=== PATIENT | female | born 1975 | race Caucasian/White ===

== ENCOUNTER 2017-08-27 17:46 | Emergency (ER) | payer OTHER ==
[~2017-08-27] VITALS: Ht 152.4 cm; Wt 62.0 kg
[~2017-08-27 17:46] MED LIST: CELE20TA PO
[2017-08-27 18:21] VITALS: BP 151/80; PULSE 75; RESP 19; TEMP 97.9; O2SAT 99
[2017-08-27] MEDS ORDERED: BUPR150XL PO (18:25)
[2017-08-27] MEDS ORDERED: ACETAMINOPHEN/HYDROcodone 325 MG/5 MG TAB PO ONE (18:45)
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
[2017-08-27] MEDS ORDERED: ROBA500T PO (19:58)
[2017-08-27] MEDS ORDERED: IBUP1TAB7 PO (19:58)
== END 2017-08-27 20:36 | disposition home or self-care (01) ==
LOC: NEPD 17:46
DX: S16.1XXA Strain of muscle, fascia and tendon at neck level, initial encounter (principal); S39.012A Strain of muscle, fascia and tendon of lower back, initial encounter; S20.219A Contusion of unspecified front wall of thorax, initial encounter; M50.322 Other cervical disc degeneration at C5-C6 level; F41.9 Anxiety disorder, unspecified; F32.9 Major depressive disorder, single episode, unspecified; V49.9XXA Car occupant (driver) (passenger) injured in unspecified traffic accident, initial encounter; Z88.0 Allergy status to penicillin; Z79.899 Other long term (current) drug therapy
CPT/HCPCS: 70450; 71010; 72125; 72131

== ENCOUNTER 2017-10-28 08:39 | Emergency (ER) | payer OTHER ==
[~2017-10-28 08:39] MED LIST changes: +BUPR150XL PO; -CELE20TA PO; +IBUP1TAB7 PO; +ROBA500T PO
[2017-10-28 08:46] VITALS: BP 128/67; PULSE 92; RESP 16; TEMP 97.9; O2SAT 97
[2017-10-28 09:08] LABS: BILIRUBIN, URINE NEG (NEG); BLOOD, URINE MOD (NEG); GLUCOSE,URINE 250 mg/dL (NEG); KETONE, URINE TRACE mg/dL (NEG); NITRITE,URINE POS (NEG); URINE LEUKOCYTE ESTERASE MOD (NEG)
[2017-10-28] MEDS ORDERED: CELE20TA PO (09:10)
[2017-10-28 09:16] LABS: URINE COLOR ORANGE (YELLW/STRAW); WHITE BLOOD CELL CLUMPS FEW
[2017-10-28 09:17] LABS: BACTERIA, URINE FEW /hpf; RBC, URINE 0-3 /hpf (0-3); SQUAMOUS EPITHELIAL CELL URINE 0-5 /hpf (0-5)
[2017-10-28] MEDS ORDERED: ALBUAER3 INH (09:53)
[2017-10-28] MEDS ORDERED: PRED20 PO (09:53)
[2017-10-28] MEDS ORDERED: MACR100C2 PO (09:53)
--- NOTE | 2017-10-28 09:58 | PD ---
HPI Chief Complaint: Cold / Flu Symptoms Time Seen by Provider: 09:22 Travel History International Travel<30 days: No Contact w/Intl Traveler<30days: No Traveled to known affect area: No History of Present Illness HPI 42-year-old female presents for evaluation. For the past week she has had dysuria, burning, worse with urination. She has also had cough, congestion, sore throat, chills for the past several days. Cough is productive with green sputum production. Denies recent travel, rash. No other complaints at this time. PFSH Past Medical History Anxiety: Yes Depression: Yes Diminished Hearing: No Psychiatric: Yes Influenza Vaccination: No ?: Not : 6 Para: 5 Miscarriage: 1 Tubal Ligation: Yes Social History Alcohol Use: Yes (SOCIAL) Tobacco Use: No (QUIT 2012) Substance Use: No Allergies-Medications (Allergen,Severity, Reaction): Coded Allergies: penicillin G (Unverified Allergy, Unknown, SWELLING, 08/27/17) Reported Meds & Prescriptions Reported Meds & Active Scripts Active Proair Hfa 8.5 GM Inh (Albuterol Sulfate) 90 Mcg/Act Aer 2 Puff INH Q4-6H PRN 108 mcg/actuation Prednisone 20 Mg Tab 20 Mg PO BID 5 Days Macrobid (Nitrofurantoin Monohydrate Macrocrystals) 100 Mg Capsule 100 Mg PO BID 7 Days Reported Celexa (Citalopram Hydrobromide) 20 Mg Tab 20 Mg PO DAILY Review of Systems Except as stated in HPI: all other systems reviewed are Neg Physical Exam Narrative GENERAL: Well-nourished female in no acute distress SKIN: Warm and dry. HEAD: Atraumatic. Normocephalic. EYES: Pupils equal and round. No scleral icterus. No injection or drainage. ENT: No nasal bleeding or discharge. Mucous membranes pink and moist. No oropharyngeal erythema or exudate. Tympanic membranes appear normal without erythema or fluid level. NECK: Trachea midline. No JVD. CARDIOVASCULAR: Regular rate and rhythm. No murmur appreciated. RESPIRATORY: No accessory muscle use. Wheezing noted bilaterally. GASTROINTESTINAL: Abdomen soft, mild suprapubic tenderness without guarding. Data Data Last Documented VS Vital Signs Date Time Temp Pulse Resp B/P (MAP) Pulse Ox O2 Delivery O2 Flow Rate FiO2 10/28/17 08:46 97.9 92 16 128/67 (87) 97 Orders Orders Urinalysis - C+S If Indicated (10/28/17 08:50) Ed Urine Pregnancytest Poc (10/28/17 09:06) Urine Culture (10/28/17 08:50) Albuterol-Ipratropium Neb (Duoneb Neb) (10/28/17 10:00) Prednisone (Deltasone) (10/28/17 10:00) Ed Discharge Order (10/28/17 09:52) Labs Laboratory Tests Test 10/28/17 08:50 Urine Collection Type VOIDED Urine Color ORANGE Urine Turbidity CLOUDY Urine pH 7.0 Urine Specific [place] 1.013 Urine Protein 100 mg/dL Urine Glucose (UA) 250 mg/dL Urine Ketones TRACE mg/dL Urine Occult Blood MOD Urine Nitrite POS Urine Bilirubin NEG Urine Leukocyte Esterase MOD Urine RBC 0-3 /hpf Urine WBC 6-8 /hpf Urine WBC Clumps FEW Urine Squamous Epithelial Cells 0-5 /hpf Urine Bacteria FEW /hpf Microscopic Urinalysis Comment CULTURE INDICATED MDM Medical Decision Making Medical Screen Exam Complete: Yes Emergency Medical Condition: Yes Medical Record Reviewed: Yes Differential Diagnosis Cystitis, pyelonephritis, bronchitis, pneumonia, influenza, otitis media, pharyngitis, sinusitis Narrative Course 42-year-old female with cough and congestion for the past several days as well as dysuria, increased urinary frequency. Urinalysis is consistent with cystitis. On examination she does have wheezing bilaterally. She will be given DuoNeb therapy and prednisone. She has an allergy to penicillin. Pending urine culture results she'll be given prescription for Macrobid. Diagnosis Primary Impression: Cystitis Additional Impression: Bronchitis Additional Instructions: Medication as prescribed. Stay well hydrated well-nourished, get plenty of rest. Follow-up with primary care physician as needed and return for any emergent medical conditions. Med/Other Pt SpecificInfo: Prescription(s) given Scripts Albuterol 8.5 GM Inh (Proair Hfa 8.5 GM Inh) 90 Mcg/Act Aer 2 PUFF INH Q4-6H Y for SHORTNESS OF BREATH, #1 INHALER 0 Refills 108 mcg/actuation Prov: Jose Loving MD 10/28/17 Prednisone (Prednisone) 20 Mg Tab 20 MG PO BID for 5 Days, #10 TAB 0 Refills Prov: Jose Loving MD 10/28/17 Nitrofurantoin Monohydrate Macrocrystals (Macrobid) 100 Mg Capsule 100 MG PO BID for Infection for 7 Days, #14 CAP 0 Refills Prov: Jose Loving MD 10/28/17 Disposition: 01 DISCHARGE HOME Condition: Stable Yury Lakhani Oct 28, 2017 09:58
[2017-10-28] MEDS ORDERED: predniSONE 20 MG TAB PO ONE (10:00)
[2017-10-28] MEDS: RESP: ALBUTEROL 2.5 MG/IPRATROPIUM 0.5 MG NEB (SCH) INH ×2 (10:01→10:02)
== END 2017-10-28 10:22 | disposition home or self-care (01) ==
LOC: PHEFT 08:39
DX: N30.90 Cystitis, unspecified without hematuria (principal); J40 Bronchitis, not specified as acute or chronic; F32.9 Major depressive disorder, single episode, unspecified; F41.9 Anxiety disorder, unspecified; Z88.0 Allergy status to penicillin; Z79.899 Other long term (current) drug therapy
CPT/HCPCS: 81001; 84703; 87086; 94640; 94664; 99284; J7512